=== PATIENT | male | born 1935 | race Caucasian/White ===

== ENCOUNTER 2016-09-13 02:28 | Inpatient (IN) | payer OTHER, MEDICARE ==
[~2016-09-13] VITALS: Ht 193 cm; Wt 81.6 kg
[~2016-09-13 02:28] MED LIST: AMLODIPINE BESY10 M1 PO; BACTRIM DS TAB1 EACH PO; BISAC-EVAC10 M1 PR; BISACODYL5 M1 PO; CIPRO500 M1 PO; COLCHICINE0.6 M2 PO; COUMADIN2.5 M1 PO; FOLIC ACID1 M1 PO; KEFLEX500 M1 PO; LISINOPRIL20 M1 PO; MIRALAX119 GM PO; OLANZAPINE2.5 M1 PO; ONE DAILY MULT1 EAC2 PO; OXYCODONE-ACET1 EACH PO; PROBENECID-COL1 EACH PO; PROBENECID500 M1 PO; PROTONIX40 M3 PO; REMERON15 M2 PO; ROZEREM8 M1 PO; SENNA PLUS TAB1 EACH PO; TRAZODONE HCL50 M1 PO; VESICARE5 M1 PO; VITAMIN B-1100 MG PO; WARFARIN SODIUM5 M1 PO
[2016-09-13 06:32] LABS: PT 11.6 SEC (9.4-12.5)
[2016-09-13] MEDS ORDERED: COLACE100 M1 PO (07:12)
--- NOTE | 2016-09-13 09:29 | Operative Report ---
Operative/Inv Procedure Report Surgery Date: 09/13/16 Name of Procedure: Revision of right above-knee amputation via transfemoral amputation Pre-Operative Diagnosis: Nonhealing right above-knee amputation wound Post-Operative Diagnosis: The same Estimated Blood Loss: less than 50ml Surgeon/Horticultural Farm Manager: SEKOU COOPER MD Anesthesia: laryngeal mask airway Operative Indication: 81-year-old male status post right above-knee amputation proximal 6-7 months ago for gangrene. Recently the edge of the bone has become exposed along the amputation stump. He is here for revision amputation. Operative/Procedure Note Note: Right leg was prepped and draped in the usual sterile fashion. He received 1 g of vancomycin within 30 minutes of incision. There was a open wound with bone exposed in the above-knee amputation site care this. To be on the upper medial aspect of the prior incision. I went back into this prior incision inferolaterally and extended its anteromedially with a 10 blade, and electrocautery. The deep subcutaneous tissue and muscle fascia was divided and dissected away from the distal femur. Using electrocautery and a periosteal elevator the tissue around the distal femur was dissected out circumferentially for length about 4-5 cm. Once this is done, a giggly saw was used to divide the femur approximately 4-5cm proximally. Electric hand saw was used to smooth out and bevel the anterior, lateral, and medial edges. Hemostasis obtained using electrocautery, and ligating some bleeding areas around the bone. There was pulsatile bleeding from small vessels around the bone, suggesting excellent perfusion. Some of these had to be ligated with 3-0 Vicryls. Once hemostasis was obtained, bone wax was placed along the edge of the bone. Surgicel was placed. The deep subcutaneous fascia was reapproximated with 2-0 Vicryl. The subcutaneous tissues were reapproximated with 2-0 Vicryl. Skin brenda were placed. Xeroform gauze in multilayer compression dressing was applied. A knee immobilizer was placed. Patient tolerated the procedure well. We will restart Coumadin tonight. Subcutaneous heparin tomorrow.
--- NOTE | 2016-09-13 09:49 | Admission Core Measures ---
Admission Lab Results I reviewed the following labs: Laboratory Tests 09/13 0616 Coagulation PT (9.4 - 12.5 SEC) 11.6 INR (0.90 - 1.17) 1.11 Acute Coronary Syndrome Inclusion Criteria ACS Diagnosis No Inpatient Core Measures LDL Reminder: If No, please order W/I first 24hr of stay Congestive Heart Failure Inclusion Criteria CHF Diagnosis No Cerebrovascular accident Inclusion Criteria CVA/TIA Diagnosis No Inpatient Core Measures Bedside Swallow Eval Reminder: If BSE failed, place ST order Antithrombotic Reminder: Order Antithrombotic Medication by end of day 2 Antithrombotic Reminder: Document Reason Antithrombotic Not ordered by end of day 2 AFIB/Flutter Reminder: If Present, add to problem list AFIB/Flutter Reminder: Order Anticoag Medication for pts with AFIB/Flutter Atherosclerosis Reminder: If Present, add to problem list LDL Reminder: If No, please order W/I first 24hr of stay PT Order Reminder: If No, please order Venous thromboembolism Inpatient Core Measures VTE Risk Factors: Age > 40, Surgery No [facility] VTE prophylaxis d/t Amputee No VTE Pharm Prophylaxis d/t No contraindications Inclusion Criteria - Per Current guidelines, there needs to be overlap - treatment for the first 5 days of Warfarin therapy. - Parenteral Anticoagulation (IV or SC) needs to be - given along with Warfarin therapy. VTE Diagnosis No VTE Type NONE VTE Confirmed by (Test) NONE Problem List As ranked by this Provider includes Assessment & Plan 1. Above knee amputation of right lower extremity 2. CKD (chronic kidney disease) 3. HTN (hypertension) 4. Gout 5. PVD (peripheral vascular disease) 6. History of gout 7. Severe peripheral arterial disease 8. A-fib HOME MEDS Home Med List Amlodipine Besylate 10 MG TABLET 1 TAB PO DAILY HEART (Reported) Bisacodyl (Bisac-Evac) 10 MG SUPP.RECT 1 TAB [place] DAILY PRN CONSTIPATION Bisacodyl 5 MG TABLET.DR 1 TAB PO DAILY PRN CONSTIPATION Colchicine 0.6 MG TABLET 300 MCG PO DAILY GOUT Docusate Sodium (Colace) 100 MG CAPSULE 3 TAB PO DAILY GI (Reported) Folic Acid 1 MG TABLET 1 MG PO DAILY SUPPLEMENT Lisinopril 20 MG TABLET 1 TAB PO DAILY HEART (Reported) Multivitamin (One Daily Multivitamin) 1 EACH TABLET 1 TAB PO DAILY SUPPLEMENT Oxycodone HCl/Acetaminophen (Oxycodone-Acetaminophen 5-325) 1 EACH TABLET 1 TAB PO BIDP PRN PAIN (Reported) Pantoprazole Sodium (Protonix) 40 MG TABLET.DR 1 TAB PO DAILY GERD Polyethylene Glycol 3350 (Miralax) 119 GM POWDER 17 GM PO DAILY PRN CONSTIPATION Probenecid 500 MG TABLET 1 TAB PO DAILY GOUT Ramelteon (Rozerem) 8 MG TABLET 1 TAB PO AT BEDTIME SLEEP Sennosides/Docusate Sodium (Senna Plus Tablet) 1 EACH TABLET 2 TAB PO AT BEDTIME NEEDED PRN CONSTIPATION Solifenacin Succinate (Vesicare) 5 MG TABLET 1 TAB PO DAILY PROSTATE ( Reported) Thiamine HCl (Vitamin B-1) 100 MG TABLET 1 TAB PO DAILY SUPPLEMENT Warfarin Sodium (Coumadin) 2.5 MG TABLET 1 TAB PO COUMADIN 1700 AFIB
[2016-09-13 11:30] VITALS: BP 138/78
--- NOTE | 2016-09-13 14:06 | PN- Vascular Surgery ---
Subjective Subjective: POST-OP NOTE: No complaints. Pain controlled. Tolerating diet. No dizziness. No shortness of breath. No chest pains. Orozco to remain overnight. Objective Vital Signs and I&Os Vital Signs Date Time Temp Pulse Resp B/P B/P Pulse O2 O2 Flow FiO2 Mean Ox Delivery Rate 09/13 1130 97.6 70 18 138/78 99 Room Air Intake & Output 09/13 1600 09/13 0809/13 0000 09/12 1600 09/12 0800 09/12 0000 Intake Total Output Total Balance Patient 180 lb 186 lb Weight Weight Reported by Patient Measurement Method Physical Exam: General - alert & oriented x 3. comfortable. no acute distress. Lungs - clear bilaterally. no w/r/r. Cardiac - s1s2. irreg irreg. Abdomen - soft. nontender. - orozco draining clear, yellow urine Extremities - right aka dressing c/d/i. positioned in knee immobilizer. Current Medications: Current Medications Sig/Miles Start time Last Medication Dose Route Stop Time Status Admin Acetaminophen 650 MG Q6P PRN 09/13 1130 AC PO Amlodipine Besylate 10 MG DAILY 09/14 1000 AC PO Bisacodyl 10 MG DAILY PRN 09/14 1000 AC KS Colchicine 300 MCG DAILY 09/13 1000 AC PO Dextrose/Sodium 1,000 ML Q10H 09/13 1130 AC Chloride IV Docusate Sodium 100 MG TID 09/13 1600 AC PO Folic Acid 1 MG DAILY 09/14 1000 AC PO Heparin Sodium 5,000 UNIT Q8 09/14 0600 AC (Porcine) SC Lisinopril 20 MG DAILY 09/14 1000 AC PO Morphine Sulfate 2 MG Q4-6 PRN PRN 09/13 1130 AC IV Morphine Sulfate 4 MG Q4-6 PRN PRN 09/13 1130 AC IV Morphine Sulfate 6 MG Q4-6 PRN PRN 09/13 1130 AC IV Multivitamins 1 TAB DAILY 09/14 1000 AC PO Omeprazole 40 MG DAILY AC 09/14 0700 AC PO Oxybutynin Chloride 5 MG DAILY 09/14 1000 UNVr PO Oxycodone/ 1 TAB Q4P PRN 09/13 1130 AC Acetaminophen PO Oxycodone/ 2 TAB Q4P PRN 09/13 1130 AC Acetaminophen PO Polyethylene Glycol 17 GM DAILY 09/14 1000 AC PO Ramelteon 8 MG AT BEDTIME 05/31 2200 AC PO Senna/Docusate Sodium 2 TAB AT BEDTIME 09/13 2199 AC PO Thiamine HCl 100 MG DAILY 09/14 1000 AC PO Vancomycin HCl 1,000 MG ONCE ONE 09/14 1999 AC Sodium Chloride 250 ML IV 09/13 2058 Warfarin Sodium 5 MG COUMADIN 1700 ONE 09/13 1700 AC PO 09/13 170 Results Last 48 Hours of Labs: Laboratory Tests 09/13 0616 Coagulation PT (9.4 - 12.5 SEC) 11.6 INR (0.90 - 1.17) 1.11 Assessment/Plan Assessment/Plan This 81 year old white male with hx afib on coumadin, htn, s/p LLE bypass, ckd, gout, presenting from [place] now POD#0 s/p fevision of right above-knee amputation via transfemoral amputation for nonhealing right aka wound advance diet as tolerated pain control as ordered coumadin to start tonight. hep sc to start in the morning. 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 No Antibiotics Is Patient on Antibiotics? Yes If Yes: prophylaxis
[2016-09-13 14:38] VITALS: BP 152/76
[2016-09-13 21:47] VITALS: BP 154/72
[2016-09-14 02:00] VITALS: BP 136/68
[2016-09-14 06:00] VITALS: BP 134/70
[2016-09-14 07:54] LABS: ABSOLUTE BASOPHIL COUNT 0 /CUMM (0.0-0.2); ABSOLUTE EOSINOPHIL COUNT 0.3 /CUMM (0.0-0.7); ABSOLUTE LYMPH COUNT 1.1 /CUMM (1.2-3.4); ABSOLUTE MONOCYTE COUNT 0.6 /CUMM (0.10-0.60); BASOPHIL % 0.7 % (0.0-2.0); EOSINOPHIL % 4.7 % (0-5); GRANULOCYTE % 66.2 % (42.2-75.2); HEMATOCRIT 31.7 % (42-52); MEAN CORPUSCULAR HGB 30.6 PG (27.0-31.0); MEAN CORPUSCULAR HGB CONC 33.1 G/DL (33.0-37.0); MEAN CORPUSCULAR VOLUME 92.7 FL (80.0-94.0); PLATELET COUNT 130 /CUMM (130-400); RBC DISTRIBUTION WIDTH 15.1 % (11.5-14.5); RED BLOOD CELL CT 3.42 /CUMM (4.70-6.10)
[2016-09-14 08:25] LABS: PT 12.3 SEC (9.4-12.5)
[2016-09-14 09:00] VITALS: BP 132/64
--- NOTE | 2016-09-14 11:31 | PN- Vascular Surgery ---
Subjective Subjective: No acute overnight events reported. Pain under control presently. No c/o chest pain, shortness of breath, difficulty breathing. No nausea or vomitting. Objective Vital Signs and I&Os Vital Signs Date Time Temp Pulse Resp B/P B/P Pulse O2 O2 Flow FiO2 Mean Ox Delivery Rate 09/14 0900 88 132/64 09/14 0803 83 134/70 09/14 0803 83 134/70 09/14 0600 98.7 83 20 134/70 96 Room Air 09/14 0200 98.1 81 18 136/68 95 Room Air 09/13 2147 98.2 72 20 154/72 97 Room Air 09/13 1448 Room Air Room Air 09/13 1438 98.5 67 20 152/76 100 09/13 1130 97.6 70 18 138/78 99 Room Air Intake & Output 09/14 1600 09/14 0800 09/14 0000 09/13 1600 09/13 0800 09/13 0000 Intake Total 800 1050 510 Output Total 585 450 Balance 215 600 510 Intake, IV 600 600 150 Intake, Oral 200 450 360 Number 0 0 Bowel Movements Output, Urine 585 450 Patient 180 lb Weight Weight Reported by Patient Measurement Method Physical Exam: General: Alert and oriented x3, no acute distress Cardiac: RRR, s1s2 Pulm: CTA bilaterally ABD: Non-distended Extremities: Moves all extremities, distal sensation intact. Skin to lle warm, dry, and intact. Left calf soft. Right stump dressing intact. 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 No Antibiotics Is Patient on Antibiotics? Yes If Yes: prophylaxis
[2016-09-14 14:02] VITALS: BP 134/72
[2016-09-14 23:34] VITALS: BP 126/66
[2016-09-15 07:33] VITALS: BP 120/60
[2016-09-15 07:54] LABS: ABSOLUTE BASOPHIL COUNT 0.1 /CUMM (0.0-0.2); ABSOLUTE EOSINOPHIL COUNT 0.4 /CUMM (0.0-0.7); ABSOLUTE GRANULOCYTE CT 3.8 /CUMM (1.4-6.5); ABSOLUTE LYMPH COUNT 1.1 /CUMM (1.2-3.4); ABSOLUTE MONOCYTE COUNT 0.7 /CUMM (0.10-0.60); BASOPHIL % 0.8 % (0.0-2.0); EOSINOPHIL % 6.3 % (0-5); GRANULOCYTE % 63.6 % (42.2-75.2); HEMATOCRIT 31.3 % (42-52); MEAN CORPUSCULAR HGB 30.9 PG (27.0-31.0); MEAN CORPUSCULAR HGB CONC 33.2 G/DL (33.0-37.0); MEAN CORPUSCULAR VOLUME 92.8 FL (80.0-94.0); MEAN PLATELET VOLUME 7.8 FL (7.4-10.4); PLATELET COUNT 135 /CUMM (130-400); RBC DISTRIBUTION WIDTH 14.7 % (11.5-14.5); RED BLOOD CELL CT 3.37 /CUMM (4.70-6.10)
[2016-09-15 08:20] LABS: PT 13.9 SEC (9.4-12.5)
--- NOTE | 2016-09-15 09:01 | PN- Vascular Surgery ---
See Addendum Subjective Subjective: Reports pain improves with percocet. Seems confused at times. Nursing reports he attempted to put all of his clothes on yesterday. He reports pain in his right hand, over the mcp joint, which apparently was noticed post-operatively from what he reports related to positioning in OR. Tolerating diet. No nausea/ vomiting. No chest pains. No shortness of breath. Objective Vital Signs and I&Os Vital Signs Date Time Temp Pulse Resp B/P B/P Pulse O2 O2 Flow FiO2 Mean Ox Delivery Rate 09/15 0733 97.9 73 18 120/60 96 Room Air 09/14 2334 98.4 73 18 126/66 97 Room Air 09/14 1402 98.2 89 20 134/72 96 09/14 0900 88 132/64 Intake & Output 09/15 1600 09/15 0800 09/15 0000 09/14 1600 09/14 0800 09/14 0000 Intake Total 379 842 9818 Output Total 300 200 750 585 450 Balance -300 -200 150 215 600 Intake, IV 300 600 600 Intake, Oral 600 200 450 Number 0 Bowel Movements Output, Urine 300 200 750 585 450 Patient 180 lb Weight Physical Exam: General - alert. comfortable. no acute distress. Lungs - clear bilaterally. no w/r/r. Cardiac - s1s2 Abdomen - soft. nontender. Extremities - dressing changed, right aka stump. incision approximated with brenda. no erythema or exudates. knee immobilizer no longer in place, as it was pulling off his dressing several times. right hand has ecchymoses and tenderness over his right 3rd mcp joint. lower legs nontender b/l. Current Medications: Current Medications Sig/Miles Start time Last Medication Dose Route Stop Time Status Admin Acetaminophen 650 MG Q6P PRN 09/13 1130 AC PO Amlodipine Besylate 10 MG DAILY 09/14 1000 AC 09/14 PO 0803 Bisacodyl 10 MG DAILY PRN 09/14 1000 AC HI Colchicine 300 MCG DAILY 09/13 1000 AC 09/14 PO 0803 Dextrose/Sodium 1,000 ML Q10H 09/13 1130 DC 09/14 Chloride IV 0804 Docusate Sodium 100 MG TID 09/13 1600 AC 09/14 PO 2143 Folic Acid 1 MG DAILY 09/14 1000 AC 09/14 PO 0803 Heparin Sodium 5,000 UNIT Q8 09/14 0600 AC 09/15 (Porcine) SC 0654 Lisinopril 20 MG DAILY 09/14 1000 AC 09/14 PO 0803 Morphine Sulfate 2 MG Q4-6 PRN PRN 09/13 1130 AC IV Morphine Sulfate 4 MG Q4-6 PRN PRN 09/13 1130 DC IV Morphine Sulfate 6 MG Q4-6 PRN PRN 09/13 1130 DC IV Multivitamins 1 TAB DAILY 09/14 1000 AC 09/14 PO 0803 Omeprazole 40 MG DAILY AC 09/14 0700 AC 09/15 PO 0654 Oxybutynin Chloride 5 MG BID 09/14 1000 AC 09/14 PO 2143 Oxycodone/ 1 TAB Q4P PRN 09/13 1130 AC 09/13 Acetaminophen PO 2249 Oxycodone/ 2 TAB Q4P PRN 09/13 1130 AC 09/15 Acetaminophen PO 0030 Polyethylene Glycol 17 GM DAILY 09/14 1000 AC 09/14 PO 0803 Ramelteon 8 MG AT BEDTIME 09/13 2200 AC 09/14 PO 2143 Senna/Docusate Sodium 2 TAB AT BEDTIME 09/13 2200 AC 09/14 PO 2143 Thiamine HCl 100 MG DAILY 09/14 1000 AC 09/14 PO 0803 Warfarin Sodium 5 MG COUMADIN 1700 ONE 09/14 1700 DC 09/14 PO 09/14 1701 1652 Results Last 48 Hours of Labs: Laboratory Tests 09/15 09/14 0635 0635 Chemistry Sodium (137 - 145 mmol/L) 137 137 Potassium (3.5 - 5.1 mmol/L) 4.4 4.4 Chloride (98 - 107 mmol/L) 104 107 Carbon Dioxide (22 - 30 mmol/L) 27 24 Anion Gap (5 - 16) 6 7 BUN (9 - 20 mg/dL) 29 H 32 H Creatinine (0.7 - 1.2 mg/dL) 1.5 H 1.4 H Estimated GFR (>60 ml/min) 45 L 49 L BUN/Creatinine Ratio (7 - 25 %) 19.3 22.9 Coagulation PT (9.4 - 12.5 SEC) 13.9 H 12.3 INR (0.90 - 1.17) 1.33 H 1.17 Hematology CBC w Diff NO MAN DIFF REQ NO MAN DIFF REQ WBC (4.8 - 10.8 /CUMM) 6.0 6.0 RBC (4.70 - 6.10 /CUMM) 3.37 L 3.42 L Hgb (14.0 - 18.0 G/DL) 10.4 L 10.5 L Hct (42 - 52 %) 31.3 L 31.7 L MCV (80.0 - 94.0 FL) 92.8 92.7 MCH (27.0 - 31.0 PG) 30.9 30.6 RDW (11.5 - 14.5 %) 14.7 H 15.1 H Plt Count (130 - 400 /CUMM) 135 130 MPV (7.4 - 10.4 FL) 7.8 8.0 Gran % (42.2 - 75.2 %) 63.6 66.2 Lymphocytes % (20.5 - 51.1 %) 18.0 L 18.3 L Monocytes % (1.7 - 9.3 %) 11.3 H 10.1 H Eosinophils % (0 - 5 %) 6.3 H 4.7 Basophils % (0.0 - 2.0 %) 0.8 0.7 Absolute Granulocytes (1.4 - 6.5 /CUMM) 3.8 4.0 Absolute Lymphocytes (1.2 - 3.4 /CUMM) 1.1 L 1.1 L Absolute Monocytes (0.10 - 0.60 /CUMM) 0.7 H 0.6 Absolute Eosinophils (0.0 - 0.7 /CUMM) 0.4 0.3 Absolute Basophils (0.0 - 0.2 /CUMM) 0.1 0 PUBS MCHC (33.0 - 37.0 G/DL) 33.2 33.1 Assessment/Plan Assessment/Plan This 81 year old white male with hx afib on coumadin, htn, s/p LLE bypass, ckd, gout, presenting from [place] now POD#2 s/p revision of right above-knee amputation via transfemoral amputation for nonhealing right aka wound tolerating diet pain controlled dressing changed, right aka stump f/u labs coumadin accordingly, hx afib d/c hep sc once INR>2 xray of right hand to r/o fracture d/c planning for return to [place] will d/w Core Measures/Miscellaneous Venous Thromboembolism VTE Risk Factors: Age > 40, Surgery VTE Contraindications: No Contraindications VTE Diagnosis: No VTE Type: NONE VTE Confirmed by (Test): NONE Beta Eder Is Beta Eder a Home Med? No Antibiotics Is Patient on Antibiotics? Yes If Yes: prophylaxis
--- NOTE | 2016-09-15 09:18 | Surgical Discharge Summary ---
Visit Information Visit Dates Admission Date: 09/13/16 Discharge Date: 09/15/16 History of Present Illness Chief Complaint: right above the knee amputation wound Medical History Blood Transfusion Hx: No Neurological: delerium EENT: NONE Cardiovascular: aortic aneurysm, AFIB, hypertension, PVD Respiratory: NONE Gastrointestinal: GERD Hepatic: NONE Renal: benign prost hyperplasia Musculoskeletal: gout Psychiatric: NONE Endocrine: diabetes Blood Disorders: DVT Cancer(s): lung cancer SPORTS OFFICIAL/Reproductive: NONE Other Medical Hx: istory of abdominal aortic aneurysm, peripheral vascular disease, BPH, and history of tibiofemoral bypass. He has a history of upper lobectomy for lung cancer in 2008. Apparently, the patient was exposed to asbestos. He saw a surgeon at [facility] who ended up taking the excision out. He did not need any radiation or chemotherapy. The patient has left common iliac artery stenosis status post angioplasty in 2008. He had superficial venous thrombosis. alcohol abuse and DVTs He also has type 2 diabetes, essential hypertension, and osteomyelitis of the left calcaneus. He has a history of MRSA , Pseudomonas. 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 [facility] Facility Who Do You Live With? Patient/Self Services at Home: None What is Your Primary Language? Occitan Review of Systems: see h&p Hospital Course Course Attending Physician: SEKOU COOPER MD Primary Care Physician: EMILI DORAN,[facility] Hospital Course: Electively scheduled revision right above the knee amputation for nonhealing wound by on 09/13/16. Post-operative pain control transitioned from iv to oral medication. Dressing changed to right aka stump daily. Routine labs for post-op course and coumadin dosing adjustment. He was restarted on coumadin on the same day of his surgery at 5 mg, repeated on post-op day#1, with the intention of re-establishing his baseline anticoagulation for atrial fibrillation. Heparin sc was initiated three times daily on post-op day#1 for routine dvt prophylaxis, given his subtherapeutic INR. An xray of his right hand was obtained post-operatively for ecchymoses and subjective pain/tenderness of his right 3rd MCP joint, to rule out fracture. He will be returning to [place], where he presented from. Complications: None Allergies: Coded Allergies: Penicillins (TONGUE SWELLLS 09/12/16) aspirin (GI DISTRESS 09/12/16) nicotine (HEART PALPITATIONS 09/12/16) Pertinent Lab Results: INR 1.33 (09/15/16) Disposition Summary Disposition Principal Diagnosis: Nonhealing right above-knee amputation wound Additional Diagnosis: same s/p revision of right above-knee amputation via transfemoral amputation Discharge Disposition: SNF Discharge Instructions General Discharge Information Code Status: Full Code Patient's Diet: heart healthy, renal non-dialysis diet Patient's Activity: out of bed with assistance Follow-Up Instructions/Appts: staple removal around post-op day#14 daily dry guaze dressing changes percocet for pain control erin wrap compression over right aka stump. brien notified of revision during hospitalization. blood draws for PT/INR, for coumadin dose adjustment, known hx afib on anticoagulation. follow up with in 7-10 days Medications at Discharge Discharge Medications: Stop taking the following medications: Oxycodone HCl/Acetaminophen (Oxycodone-Acetaminophen 5-325) 1 EACH TABLET ORAL 2 x Daily as needed as needed for PAIN Qty = 60 Continue taking these medications: Lisinopril (Lisinopril) 20 MG TABLET 1 Tablet ORAL DAILY Qty = 90 Comments: Last Taken: 01/12/16 Time: 9AM Amlodipine Besylate (Amlodipine Besylate) 10 MG TABLET 1 Tablet ORAL DAILY Qty = 90 Comments: Last Taken: 01/12/16 Time: 9AM Solifenacin Succinate (Vesicare) 5 MG TABLET 1 Tablet ORAL DAILY Qty = 90 Comments: NOT GIVEN IN HOSPITAL Pantoprazole Sodium (Protonix) 40 MG TABLET. 1 Tablet ORAL DAILY Days = 30 Comments: Last Taken: 01/12/16 Time: 5:30AM Warfarin Sodium (Coumadin) 2.5 MG TABLET 1 Tablet ORAL COUMADIN AT 5PM Qty = 30 Instructions: REPEAT INR TO ADJUST FOR DOSE. GOAL OF INR 2-3 Ramelteon (Rozerem) 8 MG TABLET 1 Tablet ORAL AT BEDTIME Qty = 30 Comments: Last Taken: 01/11/16 Time: 10PM Probenecid (Probenecid) 500 MG TABLET 1 Tablet ORAL DAILY Qty = 30 Comments: Last Taken: 01/12/16 Time: 10AM Bisacodyl (Bisacodyl) 5 MG TABLET.DR 1 Tablet ORAL DAILY as needed for CONSTIPATION Qty = 30 Comments: NOT GIVEN IN HOSPITAL Bisacodyl (Bisac-Evac) 10 MG SUPP.RECT 1 Tablet RECTALLY DAILY as needed for CONSTIPATION Qty = 30 Polyethylene Glycol 3350 (Miralax) 119 GM POWDER 17 Gram ORAL DAILY as needed for CONSTIPATION Qty = 30 Comments: Last Taken: 01/11/16 Time: 9AM Sennosides/Docusate Sodium (Senna Plus Tablet) 1 EACH TABLET 2 Tablet ORAL AT BEDTIME NEEDED as needed for CONSTIPATION Qty = 30 Comments: Last Taken: 01/12/16 Time: 9AM Folic Acid (Folic Acid) 1 MG TABLET 1 Milligram ORAL DAILY Qty = 30 Comments: Last Taken: 01/12/16 Time: 9AM Thiamine HCl (Vitamin B-1) 100 MG TABLET 1 Tablet ORAL DAILY Qty = 30 Comments: Last Taken: 01/12/16 Time: 9AM Multivitamin (One Daily Multivitamin) 1 EACH TABLET 1 Tablet ORAL DAILY Qty = 30 Comments: Last Taken: 01/12/16 Time: 9AM Colchicine (Colchicine) 0.6 MG TABLET 300 Microgram ORAL DAILY Qty = 30 Comments: Last Taken: 01/12/16 Time: 9AM Docusate Sodium (Colace) 100 MG CAPSULE 3 Tablet ORAL DAILY Start taking the following new medications: Acetaminophen (Tylenol) 325 MG TABLET 650 Milligram ORAL EVERY SIX HOURS NEEDED as needed for PAIN 1-3 TEMP GREATER THAN 101 Days = 14 No Refills Instructions: alternatively to percocet. do not combine. Oxycodone HCl/Acetaminophen (Percocet 5-325 MG Tablet) 5 MG-325 MG TABLET 1 Tablet ORAL EVERY 4 HOURS NEEDED as needed for PAIN SCALE 4-6 (MODERATE ) Days = 30 No Refills Oxycodone HCl/Acetaminophen (Percocet 5-325 MG Tablet) 5 MG-325 MG TABLET 2 Tablet ORAL EVERY 4 HOURS NEEDED as needed for PAIN SCALE 7-10 (SEVERE) Qty = 30 No Refills Copies To: EMILI DORAN,BRITTANI
--- NOTE | 2016-09-15 09:26 | Patient Discharge Instructions ---
Discharge Instructions General Discharge Information You were seen/treated for: Nonhealing right above-knee amputation wound You had these procedures: Surgery Date: 09/13/16 Name of Procedure: Revision of right above-knee amputation via transfemoral amputation Watch for these problems: fever>101.3, increased pain, redness/swelling/drainage Call Surgeon to remove: [place] (staple removal around POD#14) No bath, but you may shower: Yes Other wound care: dry guaze dressing change daily, right AKA stump gentle LEXA wrap compression Diet Continue normal diet: Yes Recommended Diet: Heart Healthy, Renal Non Dialysis Additional DIET Information: coumadin considerations Activity Full Activity/No Limits: No Activity Self Limited: Yes Other activity limits: out of bed with assistance Acute Coronary Syndrome Inclusion Criteria At DC or during hospital stay patient has or had the following: ACS DIAGNOSIS No Discharge Core Measures Meds if any: Prescribed or Continued at Discharge Meds if any: NOT Prescribed or Continued at Discharge Congestive Heart Failure Inclusion Criteria At DC or during hospital stay patient has or had the following: CHF DIAGNOSIS No Discharge Core Measures Meds if any: Prescribed or Continued at Discharge Meds if any: NOT Prescribed or Continued at Discharge Cerebrovascular accident Inclusion Criteria At DC or during hospital stay patient has or had the following: CVA/TIA Diagnosis No Discharge Core Measures Meds if any: Prescribed or Continued at Discharge Meds if any: NOT Prescribed or Continued at Discharge Venous thromboembolism Inclusion Criteria VTE Diagnosis No VTE Type NONE VTE Confirmed by (Test) NONE Discharge Core Measures - Per Current guidelines, there needs to be overlap - treatment for the first 5 days of Warfarin therapy. - If discharged on Warfarin prior to 5 days of - overlap therapy, the patient will need to be - assessed for post discharge needs including - *Post discharge parental anticoagulation - *Warfarin and/or parental anticoagulation education - *Follow up date to check INR post discharge At least 5 days overlap therapy as Inpatient No Meds if any: Prescribed or Continued at Discharge Note: Overlap Therapy is Warfarin and Anticoagulant Meds if any: NOT Prescribed or Continued at Discharge
--- NOTE | 2016-09-15 10:26 | RADIOLOGY REPORT ---
EXAMINATION: XR HAND, RIGHT CLINICAL INFORMATION: Right hand pain and tenderness over 3rd MCP joint. Evaluate for fracture. Presumptive diagnosis: Right hand soft tissue injury. COMPARISON: Right hand 03/18/2012. TECHNIQUE: PA, oblique, and lateral views of the right hand. FINDINGS: There is no fracture or malalignment. 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 There are stable mild degenerative changes of the triscaphe and 1st CMC joints. There are stable intra-articular/periarticular calcifications in the 2nd MCP, 3rd MCP, 5th MCP, and 2nd through 5th PIP joints. There are associated [id number] degenerative changes of these joints as well as multiple additional DIP joints. There are stable focal erosions in the ulnar heads of the 4th and 5th metacarpals, underlying the calcium deposition. 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 Intra-articular and periarticular calcium deposition involving multiple MCP and IP joints consistent with chondrocalcinosis/calcium deposition disease. Stable [id number] degenerative changes involving multiple joints.
[2016-09-15 12:57] VITALS: BP 120/60
[2016-09-15] MEDS ORDERED: PERCOCET 5-3251 EACH PO (13:26)
[2016-09-15] MEDS ORDERED: TYLENOL325 M1 PO (13:27)
== END 2016-09-15 19:58 | DRG 476 ==
LOC: 2NA 02:28 → SDA 02:28 → ENRESERV 09:56 → 2NA 11:13 → ENPENDDIS 09-15 12:24 → 2NA 09-15 19:58
PROVIDERS: Nurse Practitioner; Physician Assistant; ADMIT Surgery Vascular Surgery
PROC: 0Y670ZZ Detachment at Right Femoral Region, Open Approach (ICD-10-PCS; principal; 2016-09-13)
DX: T87.89 Other complications of amputation stump (principal); E11.22 Type 2 diabetes mellitus with diabetic chronic kidney disease; I48.2 Chronic atrial fibrillation; I73.9 Peripheral vascular disease, unspecified; M10.9 Gout, unspecified; K21.9 Gastro-esophageal reflux disease without esophagitis; J44.9 Chronic obstructive pulmonary disease, unspecified; Z79.01 Long term (current) use of anticoagulants; I12.9 Hypertensive chronic kidney disease with stage 1 through stage 4 chronic kidney disease, or unspecified chronic kidney disease; N18.9 Chronic kidney disease, unspecified; N40.0 Benign prostatic hyperplasia without lower urinary tract symptoms; Z85.118 Personal history of other malignant neoplasm of bronchus and lung
CPT/HCPCS: 2NAP; 36415; 73130-RT; 82436; 87086; 88305; J0131; J1644; J3370; J3490; J7040; J7042

== ENCOUNTER 2017-05-13 12:26 | Emergency (ER) | payer OTHER, MEDICARE ==
[~2017-05-13] VITALS: Ht 193 cm; Wt 83.9 kg
[~2017-05-13 12:26] MED LIST changes: +COLACE100 M1 PO; +PERCOCET 5-3251 EACH PO; +TYLENOL325 M1 PO
--- NOTE | 2017-05-13 13:09 | ED GI/GU/ABDOMINAL COMPLAINT ---
History of Present Illness General Chief Complaint: Abdominal Pain/Flank Pain Stated Complaint: BIBA FOR LOWER ABD PAIN Source: patient, old records Exam Limitations: no limitations Vital Signs & Intake/Output Vital Signs & Intake/Output Vital Signs Date Time Temp Pulse Resp B/P B/P Pulse O2 O2 Flow FiO2 Mean Ox Delivery Rate 05/13 1654 97.7 70 20 136/64 98 Room Air 05/13 1420 67 20 151/67 96 Room Air 05/13 1244 99 Room Air 05/13 1244 97.8 74 18 121/74 99 Room Air Allergies Coded Allergies: Penicillins (TONGUE SWELLLS 09/12/16) aspirin (GI DISTRESS 09/12/16) nicotine (HEART PALPITATIONS 09/12/16) Reconcile Medications Acetaminophen (Tylenol) 325 MG TABLET 650 MG PO Q6P PRN PAIN 1-3 TEMP GREATER THAN 101 alternatively to percocet. do not combine. Amlodipine Besylate 10 MG TABLET 1 TAB PO DAILY HEART (Reported) Bisacodyl (Bisac-Evac) 10 MG SUPP.RECT 1 TAB LA DAILY PRN CONSTIPATION Bisacodyl 5 MG TABLET.DR 1 TAB PO DAILY PRN CONSTIPATION Colchicine 0.6 MG TABLET 300 MCG PO DAILY GOUT Docusate Sodium (Colace) 100 MG CAPSULE 3 TAB PO DAILY GI (Reported) Folic Acid 1 MG TABLET 1 MG PO DAILY SUPPLEMENT Lisinopril 20 MG TABLET 1 TAB PO DAILY HEART (Reported) Multivitamin (One Daily Multivitamin) 1 EACH TABLET 1 TAB PO DAILY SUPPLEMENT Oxycodone HCl/Acetaminophen (Percocet 5-325 MG Tablet) 5 MG-325 MG TABLET 1 TAB PO Q4P PRN PAIN SCALE 4-6 (MODERATE) Oxycodone HCl/Acetaminophen (Percocet 5-325 MG Tablet) 5 MG-325 MG TABLET 2 TAB PO Q4P PRN PAIN SCALE 7-10 (SEVERE) Pantoprazole Sodium (Protonix) 40 MG TABLET.DR 1 TAB PO DAILY GERD Polyethylene Glycol 3350 (Miralax) 119 GM POWDER 17 GM PO DAILY PRN CONSTIPATION Probenecid 500 MG TABLET 1 TAB PO DAILY GOUT Ramelteon (Rozerem) 8 MG TABLET 1 TAB PO AT BEDTIME SLEEP Sennosides/Docusate Sodium (Senna Plus Tablet) 1 EACH TABLET 2 TAB PO AT BEDTIME NEEDED PRN CONSTIPATION Solifenacin Succinate (Vesicare) 5 MG TABLET 1 TAB PO DAILY PROSTATE ( Reported) Thiamine HCl (Vitamin B-1) 100 MG TABLET 1 TAB PO DAILY SUPPLEMENT Warfarin Sodium (Coumadin) 2.5 MG TABLET 1 TAB PO COUMADIN 1700 AFIB REPEAT INR TO ADJUST FOR DOSE. GOAL OF INR 2-3 Triage Note: PT BIBA FOR INTERMITTENT ABD PAIN X SEVERAL MONTHS REPORTING WORSENING TODAY, PER EMS PT VOMITED X 2 THIS AM, REPORTING YELLOW BILE. ON ARRIVAL ABD SOFT AND NON TENDER, ARRIVES IN PULL UP AND BRIEF, PT REQUESTING TO KEEP ON. ABOVE KNEE AMPUATATION AND TOTAL TOES AMPUATED ON THE L LEG. Triage Nurses Notes Reviewed? 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 fib on Coumadin, non-small cell lung cancer status post right upper lobectomy and 2007, history of DVT status post IVC filter, BPH, status post left carotid endarterectomy, CKD, chronic alcoholism, active smoker (over 90 pack years smoking history). The patient has left common iliac artery stenosis status post angioplasty in 2008. Patient was brought in by ambulance from [facility] for concerns of chronic abdominal pain and suspecting hernia where patient's states that he vomited twice today bilious emesis and had a protruding soft tissue mass with patient states that on arrival via ambulance he MOST LIKELY self reduce the protrusion and states that he pushed the abdominal protrusion back in using his hands and states that his abdominal pain has completely resolved. Patient currently denies any symptoms. Denies any fever chills shortness of breath arm pain jaw pain current nausea vomiting testicular pain or swelling or dysuria hematuria. (Jeri GOMEZ,Rbobie) Past History Travel History Traveled to [place] past 21 day No Medical History Any Pertinent Medical History? 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 He has a history of upper lobectomy for lung cancer in 2008. Apparently, the patient was exposed to asbestos. He saw a surgeon at [facility] who ended up taking the excision out. He did not need any radiation or chemotherapy. The patient has left common iliac artery stenosis status post angioplasty in 2008. He had superficial venous thrombosis. alcohol abuse and DVTs He also has type 2 diabetes, essential hypertension, and osteomyelitis of the left calcaneus. He has a history of MRSA , Pseudomonas. 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 No (Robbie Ayon) Review of Systems Review of Systems Constitutional: Reports: no symptoms. EENTM: Reports: no symptoms. Respiratory: Reports: no symptoms. Cardiovascular: Reports: no symptoms. GI: Reports: see HPI, abdominal pain, nausea. Genitourinary: Reports: no symptoms. Musculoskeletal: Reports: no symptoms. Skin: Reports: no symptoms. Neurological/Psychological: Reports: no symptoms. Hematologic/Endocrine: Reports: no symptoms. Immunologic/Allergic: Reports: no symptoms. All Other Systems: Reviewed and Negative (Robbie Ayon) Physical Exam Physical Exam General Appearance: no apparent distress, alert, comfortable Head: atraumatic Eyes: Bilateral: normal appearance. Ears, Nose, Throat, Mouth: moist mucous membrane Neck: normal inspection Respiratory: normal breath sounds, chest non-tender, no respiratory distress Cardiovascular: irregularly irregular Gastrointestinal: normal bowel sounds, hernia Extremities: normal range of motion Neurologic/Psych: no motor/sensory deficits, awake Skin: intact, normal color, warm/dry Comments: noted SCROTAL soft tissue mass nontender no discoloration Core Measures ACS in differential dx? No Sepsis Present: No Sepsis Focused Exam Completed? No (Jeri GOMEZ,Robbie) Progress Differential Diagnosis: AAA, AMI, appendicitis, biliary colic, bowel obstruction , colon cancer, cholecystitis, diverticulitis, epididymitis, esophageal varices, gastritis, hepatitis, hernia, hemorrhoids, ischemic bowel, inflamm bowel dis, Kaya-Salvador tear, orchitis, pancreatitis, prostatitis, peptic ulcer, PUD/GERD, perforated viscous, pyelonephritis, SBO, testicular torsion, ureterolithiasis, urinary retention, urethritis, UTI/pyelo Plan of Care: Orders Procedure Date/time Status Add-on Test (ER Only) 05/13 1406 Active PARTIAL THROMBOPLASTIN TIME 05/13 1324 Complete PROTHROMBIN TIME 05/13 1324 Complete TROPONIN LEVEL 05/13 1323 Complete LACTIC ACID 05/13 1323 Complete COMPREHENSIVE METABOLIC PANEL 05/13 1323 Complete CBC WITHOUT DIFFERENTIAL 05/13 1323 Complete EKG 05/13 1227 Active Laboratory Tests 05/13/17 1623: Lactic Acid Cancelled 05/13/17 1406: PT Cancelled, INR Cancelled, APTT Cancelled 05/13/17 1324: Anion Gap 17 H, Estimated GFR 45 L, BUN/Creatinine Ratio 19.3, Glucose 138 H, Lactic Acid 1.8, Calcium 9.2, Total Bilirubin 0.4, AST 19, ALT 20 L, Alkaline Phosphatase 82, Troponin I < 0.01, Total Protein 7.8, Albumin 3.9, Globulin 3.9, Albumin/Globulin Ratio 1.0 L, PT 17.8 H, INR 1.70 H, APTT 33, CBC w Diff MAN DIFF ORDERED, RBC 4.42 L, MCV 91.1, MCH 29.8, MCHC 32.7 L, RDW 15.6 H, MPV 7.7, Gran % 87.2 H, Lymphocytes % 7.9 L, Monocytes % 3.8, Eosinophils % 0.9, Basophils % 0.2, Absolute Granulocytes 9.2 H, Absolute Lymphocytes 0.8 L, Absolute Monocytes 0.4, Absolute Eosinophils 0.1, Absolute Basophils 0, Platelet Estimate ADEQUATE, Normocytic RBCs VERIFIED, Normochromic RBCs VERIFIED Patient on initial examination was RESTING comfortBLY AT bedside patient most likely has resolved inguinal hernia PRIOR TO ARRIVAL however patient does have significant scrotal swelling and mass for concerns of chronic hernia Patient was offered a medications and antinausea medications and states he has no pain or nausea and declines 1503- PT RE-EVALUATED, NAD DENIES ANY PAIN, REVIEW BLOOD WORK CT SCAN PENDING CT scan was unremarkable for acute process I reviewed all blood work and CT scan results with patient patient was strongly advised to follow-up with surgeon discuss disposition plan with who agrees upon discharge patient looks well no apparent distress and will comply with discharge instructions and had no questions Diagnostic Imaging: Viewed by Me: CT Scan. Radiology Impression: no acute abnormality Initial ED EKG: AFIB (88 BPM,AFIB) Comments: PATIENT: MART MULLIGAN PRESENT AGE: 81 PATIENT ACCOUNT NO: [id number] : 34 LOCATION: [facility] ORDERING PHYSICIAN: Robbie GOMEZ SERVICE DATE: 05/13/17 EXAM TYPE: CAT - CT ABD & PELVIS W/O IV CONTRAS EXAMINATION: CT ABDOMEN AND PELVIS WITHOUT CONTRAST CLINICAL INFORMATION: 81-year-old male with vascular disease and aortic aneurysm. Also, additional history provided is possible hernia and left testicular mass. COMPARISON: 12/04/2015. TECHNIQUE: Multidetector volumetric imaging was performed from the superior aspect of the liver through the pubic symphysis. Sagittal and coronal reformatted images were obtained on the technologist's workstation. DLP: 677 mGy-cm FINDINGS: LUNG BASES: Cardiomegaly with dilated left atrium, three-vessel coronary artery atherosclerotic calcification and thoracic aorta atherosclerosis. No pericardial effusion. Small bilateral pleural effusions with compressive atelectasis of lower lobes. The small right pleural effusion is marginated by chronically thickened parietal pleura. The left pleural effusion is new compared to 12/04/2015. Centrilobular emphysema. Suture line observed within right lung base from prior nodule resection. LIVER, GALLBLADDER, AND BILIARY TREE: Unremarkable. PANCREAS: Unremarkable. SPLEEN: Unremarkable. ADRENAL GLANDS: Unremarkable. KIDNEYS AND URETERS: No nephrolithiasis or hydronephrosis. Bilateral perinephric edema is present. BLADDER: Unremarkable. GASTROINTESTINAL TRACT: Bowel loops are normal in caliber. There are diverticula of the sigmoid colon. No evidence of acute inflammation or obstruction along the gastrointestinal tract. ABDOMINAL WALL: Indirect left inguinal hernia contains fat, descending colon and sigmoid colon. This hernia has not significantly changed compared to 12/04/2015. Also, there is chronic, mild protrusion of fat into the proximal right inguinal canal. LYMPH NODES: No pathologic sized lymph nodes within the abdomen or pelvis. VASCULAR: Atherosclerotic calcification of the abdominal aorta and branch vessels. The infrarenal abdominal aorta measures up to 3.7 cm AP and 3.7 cm transverse, unchanged compared to 12/04/2015. There are stents of the left common and external iliac arteries. The right and left common iliac artery each measure up to 1.9 cm diameter. A filter is present within the infrarenal segment of the inferior vena cava. PELVIC VISCERA: Prostate gland is grossly unremarkable. No pelvic free fluid. OSSEOUS STRUCTURES: Bone density is diffusely decreased. No acute findings within the extensively degenerated spine. There is chondrocalcinosis of degenerated intervertebral discs, prominent osteophytes and extensive multilevel facet arthropathy. There is 0.4 cm degenerative retrolisthesis at L2-L3 and 0.8 cm of grade 1 anterolisthesis at L4-L5. There is multilevel high-grade lumbar spinal canal stenosis and bilateral neural foraminal stenosis. Chondrocalcinosis of the pubic symphysis and of the degenerated hips. IMPRESSION: 1. Chronic bilateral inguinal hernias. The left inguinal hernia contains distal descending colon and sigmoid colon, unchanged compared to 12/04/2015. No bowel obstruction. 2. The 3.7 cm aneurysm of the atherosclerotic infrarenal aorta is unchanged. 3. Small bilateral pleural effusions. The right pleural effusion is similar in size compared to 12/04/2015 whereas the left pleural effusion is new compared to the prior CT exam. 4. Multilevel facet arthropathy, disc degeneration, chondrocalcinosis, spinal canal stenosis and neural foraminal stenosis of the lumbar spine. DICTATED BY: Migue Ramirez MD DATE/TIME DICTATED:05/13/171551 ADMINIST[address]ATIVE COURT JUSTICE:JOSUE DATE/TIME TRANSCRIBED:05/13/17 (Robbie Ayon) Departure Departure Disposition: HOME OR SELF CARE Condition: Stable Clinical Impression Primary Impression: Inguinal hernia Referrals: Montrell Jean Baptiste MD (PCP/Family) Anirudh DORAN,Daniel Evans Additional Instructions: As discussed this week follow up with surgeon Dr. Oleary, if symptoms worsen return to emergency room Departure Forms: Customer Survey General Discharge Information (Robbie Ayon) PA/SUPERVISOR PHOSPHATIC FERTILIZER Co-Sign Statement Statement: ED Attending supervision documentation- x I saw and evaluated the patient. I have also reviewed all the pertinent lab results and diagnostic results. I agree with the findings and the plan of care as documented in the PA's/SUPERVISOR PHOSPHATIC FERTILIZER's documentation. [] I have reviewed the ED Record and agree with the PA's/SUPERVISOR PHOSPHATIC FERTILIZER's documentation. [] Additions or exceptions (if any) to the PAs/SUPERVISOR PHOSPHATIC FERTILIZER's note and plan are summarized below: [] (Elliot DORAN,Segundo)
[2017-05-13 13:31] LABS: ABSOLUTE BASOPHIL COUNT 0 /CUMM (0.0-0.2); ABSOLUTE EOSINOPHIL COUNT 0.1 /CUMM (0.0-0.7); ABSOLUTE GRANULOCYTE CT 9.2 /CUMM (1.4-6.5); ABSOLUTE LYMPH COUNT 0.8 /CUMM (1.2-3.4); ABSOLUTE MONOCYTE COUNT 0.4 /CUMM (0.10-0.60); BASOPHIL % 0.2 % (0.0-2.0); EOSINOPHIL % 0.9 % (0-5); HEMATOCRIT 40.3 % (42-52); MEAN CORPUSCULAR HGB 29.8 PG (27.0-31.0); MEAN CORPUSCULAR HGB CONC 32.7 G/DL (33.0-37.0); MEAN CORPUSCULAR VOLUME 91.1 FL (80.0-94.0); MEAN PLATELET VOLUME 7.7 FL (7.4-10.4); PLATELET COUNT 169 /CUMM (130-400); RBC DISTRIBUTION WIDTH 15.6 % (11.5-14.5); RED BLOOD CELL CT 4.42 /CUMM (4.70-6.10); WHITE BLOOD CELL COUNT 10.5 /CUMM (4.8-10.8)
[2017-05-13 13:34] LABS: GRANULOCYTE % 87.2 % (42.2-75.2)
[2017-05-13 14:29] LABS: PT 17.8 SEC (9.4-12.5); PTT 33 SEC (25-37)
--- NOTE | 2017-05-13 16:14 | CT SCAN REPORT ---
EXAMINATION: CT ABDOMEN AND PELVIS WITHOUT CONTRAST CLINICAL INFORMATION: 81-year-old male with vascular disease and aortic aneurysm. Also, additional history provided is possible hernia and left testicular mass. COMPARISON: 12/04/2015. TECHNIQUE: Multidetector volumetric imaging was performed from the superior aspect of the liver through the pubic symphysis. Sagittal and coronal reformatted images were obtained on the technologist's workstation. DLP: 677 mGy-cm FINDINGS: LUNG BASES: Cardiomegaly with dilated left atrium, three-vessel coronary artery atherosclerotic calcification and thoracic aorta atherosclerosis. No pericardial effusion. Small bilateral pleural effusions with compressive atelectasis of lower lobes. The small right pleural effusion is marginated by chronically thickened parietal pleura. The left pleural effusion is new compared to 12/04/2015. Centrilobular emphysema. Suture line observed within right lung base from prior nodule resection. LIVER, GALLBLADDER, AND BILIARY TREE: Unremarkable. PANCREAS: Unremarkable. SPLEEN: Unremarkable. ADRENAL GLANDS: Unremarkable. KIDNEYS AND URETERS: No nephrolithiasis or hydronephrosis. Bilateral perinephric edema is present. BLADDER: Unremarkable. GASTROINTESTINAL TRACT: Bowel loops are normal in caliber. There are diverticula of the sigmoid colon. No evidence of acute inflammation or obstruction along the gastrointestinal tract. ABDOMINAL WALL: Indirect left inguinal hernia contains fat, descending colon and sigmoid colon. This hernia has not significantly changed compared to 12/04/2015. Also, there is chronic, mild protrusion of fat into the proximal right inguinal canal. LYMPH NODES: No pathologic sized lymph nodes within the abdomen or pelvis. VASCULAR: Atherosclerotic calcification of the abdominal aorta and branch vessels. The infrarenal abdominal aorta measures up to 3.7 cm AP and 3.7 cm transverse, unchanged compared to 12/04/2015. There are stents of the left common and external iliac arteries. The right and left common iliac artery each measure up to 1.9 cm diameter. A filter is present within the infrarenal segment of the inferior vena cava. PELVIC VISCERA: Prostate gland is grossly unremarkable. No pelvic free fluid. OSSEOUS STRUCTURES: Bone density is diffusely decreased. No acute findings within the extensively degenerated spine. There is chondrocalcinosis of degenerated intervertebral discs, prominent osteophytes and extensive multilevel facet arthropathy. There is 0.4 cm degenerative retrolisthesis at L2-L3 and 0.8 cm of grade 1 anterolisthesis at L4-L5. There is multilevel high-grade lumbar spinal canal stenosis and bilateral neural foraminal stenosis. Chondrocalcinosis of the pubic symphysis and of the degenerated hips. IMPRESSION: 1. Chronic bilateral inguinal hernias. The left inguinal hernia contains distal descending colon and sigmoid colon, unchanged compared to 12/04/2015. No bowel obstruction. 2. The 3.7 cm aneurysm of the atherosclerotic infrarenal aorta is unchanged. 3. Small bilateral pleural effusions. The right pleural effusion is similar in size compared to 12/04/2015 whereas the left pleural effusion is new compared to the prior CT exam. 4. Multilevel facet arthropathy, disc degeneration, chondrocalcinosis, spinal canal stenosis and neural foraminal stenosis of the lumbar spine.
[2017-05-13 16:54] VITALS: BP 136/64
== END 2017-05-13 17:37 ==
LOC: ERH 12:26
PROVIDERS: Physician Assistant
DX: K40.90 Unilateral inguinal hernia, without obstruction or gangrene, not specified as recurrent (principal); I10 Essential (primary) hypertension; I48.91 Unspecified atrial fibrillation
CPT/HCPCS: 74176; 93005; 93010